=== PATIENT | female | born 1980 | race African-American/Black ===

== ENCOUNTER 2019-09-01 10:11 | Day surgery (SDC) | payer OTHER ==
[2019-08-31 15:00] VITALS: BMI 31.6
[2019-09-01] MEDS ORDERED: MIDAZOLAM HCL 2 MG/2 ML SINGLE DOSE VIAL ONE (12:48)
[2019-09-01] MEDS ORDERED: DEXAMETHASONE SOD PHOSPHATE 4 MG/1 ML VIAL ONE (12:49)
[2019-09-01] MEDS ORDERED: PROPOFOL 20 ML ONE ×2 (12:49)
[2019-09-01] MEDS ORDERED: SUCCINYLCHOLINE CHLORIDE 200 MG/10 ML SYRINGE ONE (12:49)
[2019-09-01] MEDS ORDERED: LIDOCAINE HCL/PF 2% SDV 5ML VIAL ONE (12:49)
[2019-09-01] MEDS ORDERED: GLYCOPYRROLATE 0.2 MG/1 ML VIAL ONE ×2 (12:50→14:11)
[2019-09-01] MEDS ORDERED: ceFAZolin SODIUM 1 GM VIAL IVPB ONE (13:30)
[2019-09-01] MEDS ORDERED: ceFAZolin SODIUM 1 GM VIAL ONE (13:32)
[2019-09-01] MEDS ORDERED: BUPIVACAINE HCL/PF 0.5% (5 MG/ML) 30 ML VIAL IJ ONE (13:51)
[2019-09-01] MEDS ORDERED: NEOSTIGMINE METHYLSULFATE 0.5 MG/ML - 10 ML MDV ONE (14:10)
[2019-09-01] MEDS ORDERED: ONDANSETRON 4 MG/2 ML VIAL IVPUSH PRN (14:51)
[2019-09-01] MEDS ORDERED: oxyCODONE HCL 5 MG TABLET PO PRN ×2 (14:51)
[2019-09-01] MEDS ORDERED: LACTATED RINGERS SOLUTION 1,000 ML IV SCH (15:00)
--- NOTE | 2019-09-01 15:04 | OP ---
Operative Note - Note: Operative Date: 09/01/19 Pre-Operative Diagnosis: Left ovarian mass/cyst Operation: Laparoscopic Left oorphorectomy, b/l salpingectomy, right cystectomy Findings: right ovarian cyst Post-Operative Diagnosis: Same as Pre-op Surgeon: Cuca Griffith Oil Spraying Machine Operator: Tsering Gay Anesthesiologist/GASKET SUPERVISOR: Danii Baron Anesthesia: General Specimens Removed: 20 Fluid Volume Replaced (mls): 1,000 Operative Report Dictated: Yes
--- NOTE | 2019-09-01 15:05 | SURG ---
Surgery Steel Tester Note Steel Tester: Tsering Gay PA-C Date of Service: 09/01/19 Diagnosis: Left ovarian mass/cyst Procedure: Laparoscopic Left oorphorectomy, b/l salpingectomy, right cystectomy I was present for the entirety of the operative procedure. For further detail, please refer to operative report. Visit type - Case Type Case Type: Scheduled - Emergency Emergency Visit: No - New patient This patient is new to me today: Yes Date on this admission: 09/01/19
--- NOTE | 2019-09-01 15:39 | OP ---
DATE OF OPERATION: 09/01/2019 PREOPERATIVE DIAGNOSIS: Left adnexal mass. POSTOPERATIVE DIAGNOSIS: Bilateral ovarian cyst. SURGEON: Cuca Griffith MD ROLLING MILL OPERATOR: MACARIO Núñez ANESTHESIA: General endotracheal and local. ESTIMATED BLOOD LOSS: 20 mL. COMPLICATIONS: None. INDICATIONS: This is a 39-year-old 14, para 6, EAB 8 with history of a left adnexal mass. She reported a history of sharp, left lower quadrant pain. On June 16, 2019, ultrasound showed the uterus to be 4.0 x 5.3 x 3.5 cm with small fibroids. Endometrial stripe was 4.73 mm. The left ovary showed a heterogenous complex lesion versus a mass 3.4 x 3.5 cm. Right ovary with a 1.6-cm hypoechoic lesion. CA-125 was normal at 5.5. An HE4 was 40.1, which was normal. Patient was counseled regarding surgical management. Risks, benefits, indications, and alternatives were discussed with the patient. All questions were answered. Informed consent was signed. INTRA-ABDOMINAL FINDINGS: Normal liver edge, normal diaphragm. Uterus approximately 6 weeks' size. The left ovary contained a 3-cm smooth walled cyst. Tubes were status post tubal ligation. There was no evidence of endometriosis. There were small submucosal fibroids on the back of the uterus. There was no evidence of endometriosis of other intra-abdominal disease. Right ovary also contained a 1.5-cm cyst. Right tube appeared normal status post tubal ligation. There was no other intra-abdominal evidence of disease. PROCEDURE: The patient was taken to the operating room, placed in the dorsal supine position. General endotracheal anesthesia was obtained without difficulty. She was placed in the dorsal lithotomy position in Beck stirrups and prepped and draped in normal sterile fashion. Rand catheter was placed in the bladder, 5 mL of 0.5% Marcaine was injected into the umbilicus, and a 5-mm incision was made with a scalpel. While tenting the anterior abdominal wall, the Veress needle was inserted intra-abdominally, and the abdomen was insufflated with CO2 gas. A 5-mm trocar was placed under direct visualization. Additional 5-mm trocar was placed in the right lower quadrant, and the 11-mm trocar was placed suprapubically in the midline in her prior scar. The left adnexa was elevated. The utero-ovarian ligament and the fallopian tube proximally at the cornua of the uterus was clamped, cauterized, and transected. This was carried through the broad ligament to the infundibulopelvic ligament. The infundibulopelvic ligament was well away from the ureter. At this point, infundibulopelvic ligament was clamped, cauterized, and transected. The left tube and ovary were handed off the field in an EndoCatch bag. The right adnexa was elevated. The right fimbria was grasped. The mesosalpinx was clamped, cauterized, and transected, and the portion of the right tube was handed off the field. The right ovarian cyst was grasped at its based. It was clamped, cauterized, and transected using the LigaSure device was handed off the field. Excellent hemostasis was seen. The pelvis was thoroughly irrigated and noted to be hemostatic. The suprapubic incision was closed at the fascia using 0 Vicryl and a Hua-Presley device. All instruments were removed from the patient's abdomen. Sponge, instrument counts were correct x2. The skin was closed with 4-0 Monocryl, and Dermabond was applied. Rand catheter was removed. The patient was extubated and transferred in stable condition to the PACU. [id number]
[2019-09-01 18:16] VITALS: PULSE 90; TEMP 98.2
[2019-09-01 18:29] VITALS: BP 144/80
== END 2019-09-01 17:15 | disposition home or self-care (01) ==
LOC: JASU-SURG 10:11
PROVIDERS: ATTEND Obstetrics & Gynecology Gynecologic Oncology
PROC: 0UB74ZZ Excision of Bilateral Fallopian Tubes, Percutaneous Endoscopic Approach (ICD-10-PCS; 2019-09-01)
PROC: 0UB24ZZ Excision of Bilateral Ovaries, Percutaneous Endoscopic Approach (ICD-10-PCS; principal; 2019-09-01 12:00)
DX: N83.202 Unspecified ovarian cyst, left side (principal); N83.201 Unspecified ovarian cyst, right side
CPT/HCPCS: 81025; 86850; 86900; 86901; 94760